=== PATIENT | male | born 1955 | race African-American/Black ===

== ENCOUNTER 2019-03-03 19:25 | Emergency (ER) | payer OTHER ==
[~2019-03-03] VITALS: Ht 175.3 cm; Wt 73.0 kg
[2019-03-04] MEDS ORDERED: IBUPROFEN 600MG TABLET PO ONE (01:30)
[2019-03-04] MEDS ORDERED: ACETAMINOPHEN 500MG TABLET PO ONE (01:30)
[2019-03-04 02:23] VITALS: BP 143/78
== END 2019-03-04 02:24 | disposition home or self-care (01) ==
LOC: ER 19:25
DX: K40.90 Unilateral inguinal hernia, without obstruction or gangrene, not specified as recurrent (principal); F17.200 Nicotine dependence, unspecified, uncomplicated
CPT/HCPCS: 93005; 99283